=== PATIENT | male | born 1945 | race African-American/Black ===

== ENCOUNTER 2023-12-19 12:57 | Inpatient (IN) | payer MEDICARE, OTHER ==
[~2023-12-19] VITALS: Ht 172.7 cm; Wt 92.3 kg
[~2023-12-19 12:57] MED LIST: BRIM0.159 OP; DORZ2SOL18 EACHEYE; GABA100C PO; HYDR-4833 PO; LIS5T PO; RIBA200C38 PO; TIMO0.5S28 EACHEYE
[2023-12-19 17:52] LABS: Basophils # (auto) 0.1 10 ^3/uL (0-0.2); Eosinophils # (auto) 0.4 10 ^3/uL (0-0.8); Eosinophils % (auto) 4.8 % (0.0-7.0); Hemoglobin 16.7 g/dL (13.5-17.5); Lymphocytes # (auto) 3.1 10 ^3/uL (0.4-5.4); Mean Corpuscular Hemoglobin 29.8 pg (28.0-32.0); Mean Corpuscular Hgb Conc. 33.3 g/dL (32.0-36.0); Mean Corpuscular Volume 89.4 fL (80.0-100.0); Monocytes # (auto) 0.8 10 ^3/uL (0-1.3); Neutrophils % (auto) 48.2 % (37.0-80.0); Nucleated Red Blood Cells % 0.3 %; Red Blood Cells 5.59 10^6/uL (4.5-5.90); Red Cell Distribution Width 14.2 % (11.8-14.3); White Blood Cell 8.3 10^3/uL (4.4-10.8)
[2023-12-19 18:12] LABS: Alanine Aminotransferase 32 U/L (7-40); Alkaline Phosphatase 108 U/L (46-116); Anion Gap 12 (5-15); BUN/Creatinine Ratio 15.9 (10.0-20.0); Blood Alcohol < 3.0 mg/dL (<10); Blood Urea Nitrogen 18 mg/dL (9-23); Calcium 9.8 mg/dL (8.5-10.1); Carbon Dioxide 16 mmol/L (20-30); Chloride 109 mmol/L (98-107); Glucose 110 mg/dL (74-106); Potassium 4.2 mmol/L (3.5-5.1); Sodium 137 mmol/L (136-145)
[2023-12-19 18:13] LABS: Albumin 4.7 g/dL (3.2-4.8); Aspartate Aminotransferase 38 U/L (13-40); Bilirubin, Total 0.4 mg/dL (0.2-1.0); Total Protein 7.6 g/dL (5.7-8.2)
[2023-12-19 18:17] LABS: INR 1.04 (0.9-1.15); Partial Thromboplastin Time 30.7 SEC (24.5-34.5); Prothrombin Time 10.9 sec (9.3-11.8)
[2023-12-19 18:28] LABS: Magnesium 1.7 mg/dL (1.6-2.6)
[2023-12-19] MEDS: ONDANSETRON HCL 4 MG/2 ML VIAL IV ONE (18:59)
[2023-12-19] MEDS: ONDANSETRON HCL 4 MG/2 ML VIAL IM ONE (19:06)
[2023-12-20] VITALS (7 sets, daily range): BP systolic 133–166; BP diastolic 75–93; PULSE 72–94; RESP 16–18; TEMP 96.3–98.7; O2SAT 91–95
[2023-12-20] MEDS ORDERED: ONDANSETRON HCL 4 MG/2 ML VIAL IV PRN (01:30)
[2023-12-20] MEDS ORDERED: DOCUSATE SOD 100 MG CAP PO PRN (01:30)
[2023-12-20] MEDS ORDERED: HYDROcodone-ACET 5/325MG TAB PO PRN (01:30)
[2023-12-20] MEDS ORDERED: MORPHINE SULFATE INJ 2 MG/ml SYRG IV PRN (04:15)
[2023-12-20] MEDS ORDERED: NITROGLYCERIN 0.4 MG SL TAB SL PRN (04:15)
[2023-12-20] MEDS: FAMOTIDINE (10MG/ML) 2ML VL IV SCH (10:25)
[2023-12-20] MEDS: SODIUM CHLORIDE 0.9% 1,000 ML IV SCH (10:32)
[2023-12-20 11:46] LABS: Urine Bacteria None Seen /hpf (None Seen)
[2023-12-20 11:54] LABS: Urine Blood Negative /uL (Negative); Urine Clarity Clear (Clear); Urine Color Light-Yellow (Yellow); Urine Protein, UAD 1+ (Negative); Urine Specific Gravity 1.018 (1.001-1.035); Urine Urobilinogen Normal (Negative); Urine WBC <1 /hpf (0 - 3); Urine pH 5.5 (5.0-9.0)
[2023-12-20 12:03] LABS: Amphetamine Screen, Urine Neg (NEGATIVE); Barbiturate Scree,Urine Neg (NEGATIVE); Benzodiazephine Screen, Urine Neg (NEGATIVE); Cannabinoid Screen, Urine Neg (NEGATIVE); Cocaine Screen, Urine Neg (NEGATIVE); Opiate Scree,Urine Neg (NEGATIVE); Phencyclidine Screen, Urine Neg (NEGATIVE)
[2023-12-21] VITALS (7 sets, daily range): BP systolic 125–151; BP diastolic 72–90; PULSE 63–80; RESP 16–20; TEMP 97.2–98.2; O2SAT 92–97
[2023-12-21] MEDS: ASPirin 81 mg TAB PO SCH (10:50)
[2023-12-21] MEDS ORDERED: AMLO1TAB22 PO (12:02)
[2023-12-21] MEDS ORDERED: ATOR10TA PO (12:03)
[2023-12-21] MEDS ORDERED: LATA0.0020 EACHEYE (12:06)
[2023-12-22 01:00] VITALS: BP 130/72; PULSE 65; RESP 20; TEMP 98.2; O2SAT 96
[2023-12-22 05:00] VITALS: BP 138/73; PULSE 87; RESP 20; TEMP 98.1; O2SAT 95
[2023-12-22 08:00] VITALS: BP 130/73; PULSE 94; RESP 19; TEMP 99.8; O2SAT 90
[2023-12-22 09:00] VITALS: BP 130/73; PULSE 94; RESP 19; TEMP 99.8; O2SAT 90
[2023-12-22] MEDS: ATORVASTATIN 20 MG TAB PO SCH (10:41)
[2023-12-22] MEDS: amLODIPine BESYLATE 5 MG TAB PO SCH (10:42)
[2023-12-22 13:00] VITALS: BP 142/85; PULSE 92; RESP 20; TEMP 97.6; O2SAT 90
[2023-12-22] MEDS: ACETAMINOPHEN 325 MG TAB PO PRN (14:23)
== END 2023-12-22 18:15 | disposition home or self-care (01) | DRG 445 ==
LOC: ER 12:57 → OVERFLOW 12-20 04:15 → WEST WING 12-20 07:10
PROVIDERS: ADMIT Nurse Practitioner Family; ATTEND Internal Medicine Geriatric Medicine
DX: K80.20 Calculus of gallbladder without cholecystitis without obstruction (principal); I69.351 Hemiplegia and hemiparesis following cerebral infarction affecting right dominant side; H40.89 Other specified glaucoma; R26.81 Unsteadiness on feet; I10 Essential (primary) hypertension
CPT/HCPCS: 36415; 71046; 74176; 76705; 80053; 80307; 80320; 81001; 82962; 83605; 83735; 83880; 84443; 84484; 85025; 85610; 85730; 87040; 96372; G0378; J2405; J3490

== ENCOUNTER 2024-04-12 11:39 | Emergency (ER) | payer OTHER, MEDICARE ==
[~2024-04-12] VITALS: Ht 172.7 cm; Wt 90.6 kg
[~2024-04-12 11:39] MED LIST changes: +AMLO1TAB22 PO; +ATOR10TA PO; +LATA0.0020 EACHEYE
[2024-04-12 13:09] VITALS: BP 117/78; PULSE 85; RESP 20; TEMP 97.7; O2SAT 97
[2024-04-12] MEDS ORDERED: LIDO5DIS21 TOP (13:30)
[2024-04-12] MEDS ORDERED: MELO7.5T7 PO (13:30)
[2024-04-12] MEDS: HYDROcodone-ACET 5/325MG TAB PO ONE (13:32)
== END 2024-04-12 13:36 | disposition home or self-care (01) ==
LOC: ER 11:42
DX: M13.851 Other specified arthritis, right hip (principal); I10 Essential (primary) hypertension; Z86.73 Personal history of transient ischemic attack (TIA), and cerebral infarction without residual deficits; Z87.891 Personal history of nicotine dependence